=== PATIENT | male | born 1975 | race Caucasian/White ===

== ENCOUNTER 2021-12-13 16:30 | Outpatient (CLI) | payer BC | END 2021-12-13 16:31 | disposition home or self-care (01) | LOC: SLEEPLAB 16:30 | PROVIDERS: ATTEND Family Medicine | DX: G47.33 Obstructive sleep apnea (adult) (pediatric) (principal); R06.83 Snoring; I10 Essential (primary) hypertension; G47.00 Insomnia, unspecified | CPT/HCPCS: 95800 ==